=== PATIENT | male | born 1975 | race Caucasian/White ===

== ENCOUNTER 2019-02-19 21:55 | Emergency (ER) | payer BC, OTHER ==
[2019-02-19] MEDS ORDERED: Diphtheria,Pertussis(Acell),Tetanus Vaccine 0.5 ML Syringe IM ONE (22:00)
--- NOTE | 2019-02-19 22:02 | EDM.PDOC ---
ED HPI GENERAL MEDICAL PROBLEM - General Chief Complaint: Laceration Stated Complaint: LEFT HAND INJURY Time Seen by Provider: 02/19/19 22:00 Source of Information: Reports: Patient - History of Present Illness INITIAL COMMENTS - FREE TEXT/NARRATIVE: HISTORY AND PHYSICAL: History of present illness: [ Patient presents with a 3 cm linear laceration on the hyperthenar eminence of his left hand, a he obtain the lesion while moving his doghouse that had a tin roof. This clean dry intact wound is well approximated however gapes with pressure, no tendon injury thumb is fully mobile tendon function intact pre-and post suture flexor and extensor entire limb is neurovascularly intact Fever nausea vomiting chills sweats Review of systems: As per history of present illness and below otherwise all systems reviewed and negative. Past medical history: As per history of present illness and as reviewed below otherwise noncontributory. Surgical history: As per history of present illness and as reviewed below otherwise noncontributory. Social history: No reported history of drug or alcohol abuse. Family history: As per history of present illness and as reviewed below otherwise noncontributory. Physical exam: HEENT: Atraumatic, normocephalic, pupils reactive, negative for conjunctival pallor or scleral icterus, mucous membranes moist, throat clear, neck supple, nontender, trachea midline. Lungs: Clear to auscultation, breath sounds equal bilaterally, chest nontender. Heart: S1S2, regular, negative for clicks, rubs, or JVD. Abdomen: Soft, nondistended, nontender. Negative for masses or hepatosplenomegaly. Negative for costovertebral tenderness. Pelvis: Stable nontender. Genitourinary: Deferred. Rectal: Deferred. Extremities: Atraumatic, negative for cords or calf pain. Neurovascular unremarkable. Neuro: Awake, alert, oriented. Cranial nerves II through XII unremarkable. Cerebellum unremarkable. Motor and sensory unremarkable throughout. Exam nonfocal. In as per history of present illness otherwise unremarkable Diagnostics: [Clinical ] Therapeutics: [T dap Wound cleansed and explored #7 4-0 Prolene sutures interrupted Bacitracin Telfa bandage Standard wound care instructions Sutures out in 10 days ] Impression: [3 cm linear laceration, simple ] Definitive disposition and diagnosis as appropriate pending reevaluation and review of above. left palm Pain Score (Numeric/FACES): 5 - Related Data Allergies Allergy/AdvReac Type Severity Reaction Status Date / Time No Known Allergies Allergy Verified 02/19/19 21:59 Home Meds: Home Meds . [No Known Home Meds] 02/19/19 [History] ED ROS GENERAL - Review of Systems Review Of Systems: See Below ED EXAM, SKIN/RASH Exam: See Below Course - Vital Signs Last Recorded V/S: Last Vital Signs Temp 97.2 F 02/19/19 22:00 Pulse 68 02/19/19 22:00 Resp 18 02/19/19 22:00 BP 128/81 02/19/19 22:00 Pulse Ox 98 02/19/19 22:00 - Orders/Labs/Meds Orders: Active Orders 24 hr Category Date Time Status Vaccines to be Administered [RC] PER UNIT ROUTINE Care 02/19/19 22:00 Active Meds: Medications Discontinued Medications Generic Name Dose Route Start Last Admin Trade Name Shirley PRN Reason Stop Dose Admin Diphtheria/Tetanus/Acell Pertussis 0.5 ml 02/19/19 22:00 02/19/19 22:11 Adacel IM 02/19/19 22:01 0.5 ml .ONCE ONE Administration Lidocaine HCl Confirm 02/19/19 22:05 02/19/19 22:12 Xylocaine-Mpf 1% Administered 02/19/19 22:06 Not Given Dose 5 mls @ as directed .ROUTE .STK-MED ONE Lidocaine HCl 5 ml 02/19/19 22:03 02/19/19 22:11 Xylocaine-Mpf 1% INJECT 02/19/19 22:04 5 ml ONETIME ONE Administration Departure - Departure Time of Disposition: 22:30 Disposition: Home, Self-Care 01 Condition: Good Clinical Impression: Laceration - Discharge Information Referrals: PCP,None [Primary Care Provider] - Forms: ED Department Discharge Additional Instructions: Standard wound care instructions Keep wound clean and dry for 48 hours Return if symptoms persist or worsen, fitting signs of an infection which would include redness warmth or pus drainage fever nausea vomiting chills sweats Sutures out in 10 days Bacitracin Telfa bandaging The following information is given to patients seen in the emergency department who are being discharged to home. This information is to outline your options for follow-up care. We provide all patients seen in our emergency department with a follow-up referral. The need for follow-up, as well as the timing and circumstances, are variable depending upon the specifics of your emergency department visit. If you don't have a primary care physician on staff, we will provide you with a referral. We always advise you to contact your personal physician following an emergency department visit to inform them of the circumstance of the visit and for follow-up with them and/or the need for any referrals to a consulting specialist. The emergency department will also refer you to a specialist when appropriate. This referral assures that you have the opportunity for follow-up care with a specialist. All of these measure are taken in an effort to provide you with optimal care, which includes your follow-up. Under all circumstances we always encourage you to contact your private physician who remains a resource for coordinating your care. When calling for follow-up care, please make the office aware that this follow-up is from your recent emergency room visit. If for any reason you are refused follow-up, please contact the [facility] emergency department at and asked to speak to the emergency department charge nurse. - My Orders Last 24 Hours: My Active Orders 02/19/19 22:00 Vaccines to be Administered [RC] PER UNIT ROUTINE - Assessment/Plan Last 24 Hours: My Active Orders 02/19/19 22:00 Vaccines to be Administered [RC] PER UNIT ROUTINE
[2019-02-19] MEDS ORDERED: Bacitracin Oint 1 GM U/D Packet TOP ONE (22:30)
== END 2019-02-19 22:40 | disposition home or self-care (01) ==
LOC: MW.ED 21:55
DX: S61.412A Laceration without foreign body of left hand, initial encounter (principal); W45.8XXA Other foreign body or object entering through skin, initial encounter
CPT/HCPCS: 12002; 90471; 90715; 99282; J2001; 99283

== ENCOUNTER 2019-03-01 08:37 | Emergency (ER) | payer BC | END 2019-03-01 09:50 | disposition left against medical advice (07) | LOC: MW.ED 08:37 | DX: Z53.21 Procedure and treatment not carried out due to patient leaving prior to being seen by health care provider (principal) ==